=== PATIENT | male | born 1965 | race Caucasian/White ===

== ENCOUNTER 2021-10-14 11:01 | Emergency (ER) | payer BC ==
[~2021-10-14] VITALS: Ht 170 cm; Wt 68.0 kg
[2021-10-14] MEDS ORDERED: IBUPROFEN 600 MG (MOTRIN) TAB PO ONE (12:30)
--- NOTE | 2021-10-14 13:11 | ED Cough/URI ---
General Chief Complaint: COVID19 Suspect/Confirmed Stated Complaint: CHILLS,FEVER,DIARRHEA Nursing Triage Note: PT TO ER BY WC WITH C/O HEADACHE, BODY ACHES, DIARRIA SINCE THURSDAY. PT HAS NO KNOWN EXPOSURE TO ANY SICKNESS. Source: patient Exam Limitations: no limitations History of Present Illness Date Seen by Provider: Oct 14, 2021 Time Seen by Provider: 11:30 Initial Comments Patient is a 55-year-old male who presents to the emergency department with a complaint of Covid symptoms. Patient denies any significant shortness of breath but has had occasional cough. Symptom onset Thursday of last week. He denies vomiting, black or bloody stools. No problems with urination. States he just hurts all over. He is only been taking ibuprofen 400 mg every 8 hours for pain. He is a little lightheaded when he moves around but he is able to tolerate fluids and is very thirsty, asking for water. No allergies to medications. No significant past medical history. Patient states he did get 1 Moderna shot, could not get the second 1 because he is "scared of needles" All other review of systems reviewed and negative except as stated. Timing/Duration: other (4d) Severity/Quality: mild Associated Symptoms: headache, lightheadedness, muscle aches, nasal congestion, sore throat Allergies and Home Medications Allergies Coded Allergies: No Known Drug Intolerances (Verified Allergy, Unknown, 10/14/21) Patient Home Medication List Home Medication List Reviewed: Yes Review of Systems Review of Systems Constitutional: see HPI, malaise, weakness EENTM: nose congestion, throat pain Respiratory: cough Cardiovascular: no symptoms reported Gastrointestinal: diarrhea, nausea Genitourinary: no symptoms reported Musculoskeletal: muscle cramps Skin: no symptoms reported Psychiatric/Neurological: Headache All Other Systems Reviewed Negative Unless Noted: Yes Past Rfxlwlq-Ypgdqs-Pcbnno Hx Patient Social History Tobacco Use?: Yes Tobacco type used: Cigarettes Smoking Status: Current Everyday Smoker Use of E-Cig and/or Vaping dev: Yes E-Cig or Vaping type used: Nicotine Substance use?: Yes Substance type: Marijuana Alcohol Use?: Yes Alcohol Frequency: Once in a while Pt feels they are or have been: No Immunizations Up To Date Influenza Vaccine Up-to-Date: No; Not Current First/Initial COVID19 Vaccinat: APRIL 2021 COVID19 Vaccine Silo Tender: MODERNA Physical Exam Vital Signs - First Documented 10/14/21 11:50 Temp 36.7 Pulse 89 Resp 20 B/P (MAP) 134/94 (107) Capillary Refill : Height: '" Weight: lbs. oz. kg; 23.00 BMI Method: General Appearance: WD/WN, no apparent distress HEENT: PERRL/EOMI, normal ENT inspection, TMs normal, pharynx normal Neck: non-tender, full range of motion, supple Respiratory: lungs clear (Sats 99% RA), normal breath sounds, no respiratory distress, no accessory muscle use Cardiovascular: regular rate, rhythm Gastrointestinal: non tender, soft Extremities: normal range of motion, non-tender, normal inspection, no pedal edema, no calf tenderness, normal capillary refill Neurologic/Psychiatric: alert, normal mood/affect, oriented x 3 Skin: normal color, warm/dry Progress/Results/Core Measures Suspected Sepsis SIRS Temperature: Pulse: 89 Respiratory Rate: 20 Blood Pressure 134 /94 Mean: 107 Results/Orders Lab Results Laboratory Tests Test 10/14/21 12:00 Range/Units Influenza Type A Antigen NEGATIVE NEGATIVE Influenza Type B Antigen NEGATIVE NEGATIVE SARS-CoV-2 RNA (RT-PCR) Positive H Negative My Orders Orders - LUIZA BRANDON MD Ibuprofen Tablet (Motrin Tablet) (10/14/21 12:30) Influenza A & B Antigens (10/14/21 12:29) Covid 19 Inhouse Test (10/14/21 12:29) Isolation Central Supply Req (10/14/21 12:29) Medications Given in ED Vital Signs/I&O 10/14/21 10/14/21 11:50 13:35 Temp 36.7 36.7 Pulse 89 80 Resp 20 20 B/P (MAP) 134/94 (107) 115/84 Capillary Refill : Blood Pressure Mean: 107 Progress Note : Time: 13:08 Progress Note Patient is nontoxic in appearance, appears adequately hydrated. Vital signs are stable, room air oxygen is 98%. He demonstrates no increased work of breathing/respiratory distress. His blood pressure is good his pulse is good. He is treated in the emergency department with 600 mg of ibuprofen. He is not nauseated was not given any nausea medications. I discussed with him the plan of care at home. I advised him that he would need to quarantine for the next 24 hours until the PCR test comes back. He verbalized understanding. I also discussed [id number] medications to help support his immune system such as vitamin D, vitamin C, zinc and baby aspirin. Return precautions given. Recommended home oxygen monitor. All questions are sought and answered. Patient is stable for discharge. Departure Impression Primary Impression: Acute upper respiratory infection Additional Impression: Person under investigation for COVID-19 Disposition: 01 HOME, SELF-CARE Condition: Stable Departure-Patient Inst. Decision time for Depature: 13:09 Referrals: [facility] [place],LOCAL PHYSICIAN (PCP) Primary Care Physician Patient Instructions: Viral Syndrome (DC) Add. Discharge Instructions: Drink lots of fluids to stay well-hydrated. You can take 3 tablets of ibuprofen every 6 hours with food as needed for body aches and fever. You can alternate this with Tylenol. Take [id number]-[id number] Mucinex for congestion. You can also use Robitussin for cough. Stay active and take deep breaths. Vitamins such as vitamin D, vitamin C, zinc help support the immune system. You should take a daily baby aspirin as well while you are sick. You should get an oxygen monitor from [employer] called a pulse oximeter. Check your oxygen levels periodically at home and if the numbers start to drop below 90% you need to come back to the emergency room for reevaluation. Your Covid test today is not a PCR test. We will call you with the PCR results if they are positive tomorrow. Return to the emergency room for any worsening shortness of breath, cough or other emergent concerning symptoms. All discharge instructions reviewed with patient and/or family. Voiced understanding. LUIZA BRANDON MD Oct 14, 2021 13:11
[2021-10-14 13:35] VITALS: BP 115/84
== END 2021-10-14 13:37 | disposition home or self-care (01) ==
LOC: ER 11:03
DX: U07.1 COVID-19 (principal); F17.210 Nicotine dependence, cigarettes, uncomplicated
CPT/HCPCS: 87636; 87804; 99283